=== PATIENT | female | born 1960 | race Caucasian/White ===

== ENCOUNTER 2019-06-09 03:33 | Inpatient (IN) ==
[2019-06-09] MEDS ORDERED: Ondansetron 4 MG/2 ML VIAL IVP PRN (07:18)
[2019-06-09] MEDS ORDERED: Naloxone 0.4 MG/ML INJ IVP PRN (07:18)
[2019-06-09] MEDS ORDERED: *HR* Promethazine 25 MG/ML VIAL IVP PRN (07:18)
[2019-06-09] MEDS ORDERED: Metoclopramide 10 MG/2 ML VIAL IVP PRN (07:55)
[2019-06-09] MEDS ORDERED: Dextrose Gel 15 GM/37.5 ML TUBE PO PRN ×2 (07:57)
[2019-06-09] MEDS ORDERED: D5% in Water 1,000 ML IVC PRN (07:57)
[2019-06-09] MEDS ORDERED: *HR* Dextrose 50 % in Water (Syg) 50 ML SYRINGE IVP PRN (07:57)
[2019-06-09 08:08] LABS: Basophils % 0.2 %; Eosinophils % 0.1 %; Hematocrit 48.2 % (35.3-44.9); Hemoglobin 16.1 g/dL (11.5-15.4); Immature Granulocytes % 0.5 % (0-4); Lymphocytes # 1.5 K/mcL (0.6-4.6); Mean Corpuscular HGB Conc 33.4 g/dL (31.6-35.5); Mean Corpuscular Hemoglobin 28.9 pg (28.0-33.3); Mean Corpuscular Volume 86.5 fL (83.0-100.0); Mean Platelet Volume 10.1 fL (9.4-12.4); Monocytes # 0.6 K/mcL (0.0-1.3); Monocytes % 4.1 %; Neutrophils # 12.7 K/mcL (1.6-8.9); Platelet Count 135 K/mcL (140-400); Red Blood Count 5.57 M/mcL (3.82-4.97); Red Cell Distribution Width 13.9 % (11.5-14.5); Segmented Neutrophils % 85.1 %; White Blood Count 14.9 K/mcL (4.3-11.1)
[2019-06-09 08:18] LABS: INR 1.2; Prothrombin Time 13.5 Seconds (9.4-12.1)
[2019-06-09 08:29] LABS: Alanine Aminotransferase 23 Units/L (7-52); Albumin 4.4 g/dL (3.5-5.7); Albumin/Globulin Ratio 1.3 (1.1-2.2); Alkaline Phosphatase 112 Units/L (34-104); Aspartate Amino Transferase 34 Units/L (13-39); BUN/Creatinine Ratio 34 (6-26); Bilirubin,Total 1.5 mg/dL (0.3-1.0); Blood Urea Nitrogen 19 mg/dL (6-20); Calcium 9.3 mg/dL (8.6-10.3); Carbon Dioxide 23 mEq/L (23-29); Chloride 102 mEq/L (98-107); Globulin 3.3 g/dL (2.4-3.5); Glucose 149 mg/dL (70-105); Magnesium 2.3 mg/dL (1.6-2.6); Osmolality,Calculated 293 (280-300); Potassium 3.8 mEq/L (3.5-5.1); Sodium 139 mEq/L (136-145); Total Protein 7.7 g/dL (6.4-8.9); eGFR For African Americans > 60 (> 60); eGFR For Non-African Americans > 60 (> 60)
[2019-06-09 09:09] LABS: Estimated Average Glucose 180 mg/dl
[2019-06-09] MEDS: Ringers Solution, Lactated 1,000 ML IVC SCH ×2 (10:42→17:34)
[2019-06-09] MEDS: Magic Mouthwash 10 ML UD Cup PO SCH ×2 (10:46→17:39)
[2019-06-09] MEDS: Nicotine 14 MG PATCH.TD24 TD SCH (11:20)
[2019-06-09] MEDS: Insulin LISPRO 300 UNITS/3 ML VIAL SQ SCH ×2 (13:05→17:39)
[2019-06-09] MEDS ORDERED: *HR* Propofol 200 MG/20 ML VIAL IVP ONE (13:13)
[2019-06-09] MEDS ORDERED: SODIUM CHLORIDE/NAHCO3/KCL/PEG 4,000 ML SOLN.RECON PO ONE (17:00)
[2019-06-09] MEDS: Pantoprazole 40 MG VIAL IVP SCH (17:34)
[2019-06-09] MEDS: Insulin DETEMIR 100 UNIT/ML X5UNITS SQ SCH (20:57)
[2019-06-10] MEDS: Insulin LISPRO 300 UNITS/3 ML VIAL SQ SCH ×4 (00:28→21:32)
[2019-06-10 05:17] LABS: Basophils # 0.1 K/mcL (0.0-0.2); Basophils % 0.4 %; Eosinophils # 0.1 K/mcL (0.0-0.6); Eosinophils % 0.3 %; Hematocrit 42.7 % (35.3-44.9); Immature Granulocytes % 0.7 % (0-4); Lymphocytes # 2.4 K/mcL (0.6-4.6); Mean Corpuscular HGB Conc 33.5 g/dL (31.6-35.5); Mean Corpuscular Hemoglobin 29.1 pg (28.0-33.3); Mean Corpuscular Volume 86.8 fL (83.0-100.0); Mean Platelet Volume 9.9 fL (9.4-12.4); Monocytes % 6.4 %; Neutrophils # 11.3 K/mcL (1.6-8.9); Platelet Count 114 K/mcL (140-400); Red Blood Count 4.92 M/mcL (3.82-4.97); Segmented Neutrophils % 76.2 %; White Blood Count 14.8 K/mcL (4.3-11.1)
[2019-06-10 05:18] LABS: Hemoglobin 14.3 g/dL (11.5-15.4)
[2019-06-10 05:37] LABS: Alanine Aminotransferase 16 Units/L (7-52); Albumin/Globulin Ratio 1.5 (1.1-2.2); Alkaline Phosphatase 101 Units/L (34-104); Aspartate Amino Transferase 24 Units/L (13-39); BUN/Creatinine Ratio 38 (6-26); Bilirubin,Total 1.6 mg/dL (0.3-1.0); Blood Urea Nitrogen 17 mg/dL (6-20); Calcium 8.7 mg/dL (8.6-10.3); Carbon Dioxide 23 mEq/L (23-29); Chloride 103 mEq/L (98-107); Globulin 2.6 g/dL (2.4-3.5); Glucose 114 mg/dL (70-105); Osmolality,Calculated 290 (280-300); Potassium 3.8 mEq/L (3.5-5.1); Sodium 139 mEq/L (136-145); Total Protein 6.6 g/dL (6.4-8.9); eGFR For African Americans > 60 (> 60); eGFR For Non-African Americans > 60 (> 60)
[2019-06-10] MEDS: Pantoprazole 40 MG VIAL IVP SCH ×2 (05:47→17:06)
[2019-06-10] MEDS: Magic Mouthwash 10 ML UD Cup PO SCH ×3 (08:02→17:06)
[2019-06-10] MEDS: Nicotine 14 MG PATCH.TD24 TD SCH (08:02)
[2019-06-10] MEDS: Insulin DETEMIR 100 UNIT/ML X5UNITS SQ SCH (21:33)
[2019-06-11] MEDS: Pantoprazole 40 MG VIAL IVP SCH ×2 (05:39→18:41)
[2019-06-11 07:21] LABS: Basophils # 0.1 K/mcL (0.0-0.2); Basophils % 0.6 %; Eosinophils # 0.2 K/mcL (0.0-0.6); Eosinophils % 1.6 %; Hematocrit 43.8 % (35.3-44.9); Hemoglobin 14.9 g/dL (11.5-15.4); Immature Granulocytes % 0.6 % (0-4); Lymphocytes # 2.9 K/mcL (0.6-4.6); Lymphocytes % 26.3 %; Mean Corpuscular Hemoglobin 29.1 pg (28.0-33.3); Mean Corpuscular Volume 85.5 fL (83.0-100.0); Mean Platelet Volume 9.1 fL (9.4-12.4); Monocytes # 0.7 K/mcL (0.0-1.3); Monocytes % 6.8 %; Platelet Count 117 K/mcL (140-400); Red Blood Count 5.12 M/mcL (3.82-4.97); Red Cell Distribution Width 13.7 % (11.5-14.5); Segmented Neutrophils % 64.1 %; White Blood Count 10.9 K/mcL (4.3-11.1)
[2019-06-11 07:42] LABS: BUN/Creatinine Ratio 45 (6-26); Blood Urea Nitrogen 22 mg/dL (6-20); Calcium 8.8 mg/dL (8.6-10.3); Carbon Dioxide 22 mEq/L (23-29); Chloride 101 mEq/L (98-107); Glucose 111 mg/dL (70-105); Osmolality,Calculated 284 (280-300); Potassium 3.7 mEq/L (3.5-5.1); Sodium 135 mEq/L (136-145); eGFR For African Americans > 60 (> 60); eGFR For Non-African Americans > 60 (> 60)
[2019-06-11] MEDS: Magic Mouthwash 10 ML UD Cup PO SCH ×3 (10:33→18:41)
[2019-06-11] MEDS: Nicotine 14 MG PATCH.TD24 TD SCH (10:36)
[2019-06-11] MEDS: Insulin LISPRO 300 UNITS/3 ML VIAL SQ SCH ×4 (10:39→21:53)
[2019-06-11] MEDS: Stomatitis Mixture 5 ML UDC PO SCH ×3 (15:19→21:53)
[2019-06-11] MEDS: Insulin DETEMIR 100 UNIT/ML X5UNITS SQ SCH (21:54)
[2019-06-12] MEDS: Pantoprazole 40 MG VIAL IVP SCH ×2 (05:31→17:47)
[2019-06-12 08:11] LABS: Basophils # 0.1 K/mcL (0.0-0.2); Basophils % 0.7 %; Eosinophils # 0.2 K/mcL (0.0-0.6); Eosinophils % 2.2 %; Hematocrit 44.8 % (35.3-44.9); Hemoglobin 15.6 g/dL (11.5-15.4); Immature Granulocytes % 0.3 % (0-4); Lymphocytes # 2.8 K/mcL (0.6-4.6); Mean Corpuscular HGB Conc 34.8 g/dL (31.6-35.5); Mean Corpuscular Volume 83.3 fL (83.0-100.0); Mean Platelet Volume 9.5 fL (9.4-12.4); Monocytes # 0.8 K/mcL (0.0-1.3); Monocytes % 8.1 %; Neutrophils # 5.7 K/mcL (1.6-8.9); Platelet Count 130 K/mcL (140-400); Red Blood Count 5.38 M/mcL (3.82-4.97); Red Cell Distribution Width 13.7 % (11.5-14.5); Segmented Neutrophils % 59.7 %; White Blood Count 9.5 K/mcL (4.3-11.1)
[2019-06-12 08:28] LABS: BUN/Creatinine Ratio 35 (6-26); Blood Urea Nitrogen 20 mg/dL (6-20); Calcium 9.1 mg/dL (8.6-10.3); Carbon Dioxide 26 mEq/L (23-29); Chloride 100 mEq/L (98-107); Glucose 168 mg/dL (70-105); Osmolality,Calculated 288 (280-300); Potassium 3.5 mEq/L (3.5-5.1); Sodium 136 mEq/L (136-145); eGFR For African Americans > 60 (> 60); eGFR For Non-African Americans > 60 (> 60)
[2019-06-12] MEDS: Stomatitis Mixture 5 ML UDC PO SCH ×4 (09:15→20:58)
[2019-06-12] MEDS: Insulin LISPRO 300 UNITS/3 ML VIAL SQ SCH ×4 (09:16→20:59)
[2019-06-12] MEDS: Nicotine 14 MG PATCH.TD24 TD SCH (09:16)
[2019-06-12] MEDS: Magic Mouthwash 10 ML UD Cup PO SCH ×3 (09:17→17:55)
[2019-06-12] MEDS: Insulin DETEMIR 100 UNIT/ML X5UNITS SQ SCH (20:58)
[2019-06-13 05:16] LABS: Basophils # 0.1 K/mcL (0.0-0.2); Basophils % 0.7 %; Eosinophils # 0.2 K/mcL (0.0-0.6); Eosinophils % 2.4 %; Hematocrit 44.1 % (35.3-44.9); Hemoglobin 15.1 g/dL (11.5-15.4); Immature Granulocytes % 0.3 % (0-4); Lymphocytes # 2.6 K/mcL (0.6-4.6); Lymphocytes % 29.1 %; Mean Corpuscular HGB Conc 34.2 g/dL (31.6-35.5); Mean Corpuscular Hemoglobin 29.1 pg (28.0-33.3); Mean Platelet Volume 10.1 fL (9.4-12.4); Monocytes # 0.7 K/mcL (0.0-1.3); Monocytes % 7.3 %; Neutrophils # 5.5 K/mcL (1.6-8.9); Platelet Count 117 K/mcL (140-400); Red Blood Count 5.19 M/mcL (3.82-4.97); Red Cell Distribution Width 13.7 % (11.5-14.5); Segmented Neutrophils % 60.2 %; White Blood Count 9.1 K/mcL (4.3-11.1)
[2019-06-13] MEDS: Pantoprazole 40 MG VIAL IVP SCH (05:19)
[2019-06-13 05:36] LABS: BUN/Creatinine Ratio 41 (6-26); Blood Urea Nitrogen 18 mg/dL (6-20); Calcium 8.8 mg/dL (8.6-10.3); Carbon Dioxide 24 mEq/L (23-29); Chloride 100 mEq/L (98-107); Glucose 205 mg/dL (70-105); Osmolality,Calculated 296 (280-300); Potassium 3.6 mEq/L (3.5-5.1); Sodium 139 mEq/L (136-145); eGFR For African Americans > 60 (> 60); eGFR For Non-African Americans > 60 (> 60)
[2019-06-13] MEDS: Insulin LISPRO 300 UNITS/3 ML VIAL SQ SCH ×2 (10:09→11:53)
[2019-06-13] MEDS: Nicotine 14 MG PATCH.TD24 TD SCH (10:09)
[2019-06-13] MEDS: Magic Mouthwash 10 ML UD Cup PO SCH ×2 (10:09→11:52)
[2019-06-13] MEDS: Stomatitis Mixture 5 ML UDC PO SCH ×2 (10:17→14:35)
[2019-06-13 14:09] VITALS: BP 122/76
== END 2019-06-13 17:13 | disposition home or self-care (01) | DRG 381 ==
LOC: 3ANU → SUATTDRO 05:31 → 3ANU 05:55
PROVIDERS: ADMIT Internal Medicine; ATTEND Internal Medicine
PROC: ENDOEBX (2019-06-09 14:00)